=== PATIENT | male | born 1960 | race Hispanic/Latino ===

== ENCOUNTER 2024-06-13 07:37 | Emergency (ER) | payer SELFPAY ==
--- NOTE | 2024-06-13 08:09 | ERN ---
ED Note History of Present Illness Stated Complaint: FLU SYMPTOMS Chief Complaint: Flu Symptoms Time Seen by MD: 07:51 Dictation: The patient is a 63-year-old male patient with a medical history of type 2 diabetes mellitus presented to the emergency department with the primary complaint of severe headaches that began the previous day. The onset of symptoms coincided with his use of crack cocaine. He reports experiencing intense pain throughout his head, along with difficulty swallowing and episodes of sweating. Although he does not recall having a fever, he does report experiencing chills and generalized weakness. Additionally, he describes a sensation of pressure in the center of his chest but denies any occurrences of vomiting or diarrhea. The patient has no prior history of pulmonary or cardiac conditions and has not experienced similar symptoms in the past. He also reports no neurological deficits. Allergies: Coded Allergies: No Known Drug Allergies (Unverified Allergy, Unknown, 06/13/24) Home Meds Active Scripts Amoxicillin (Amoxicillin) 500 Mg Tablet, 1 TAB PO BID for 10 Days, #20 TAB 0 Refills Prov:FEROZ SHAFFER MD 06/13/24 Past Medical History Past Medical History: Diabetes-Type II Surgical History: None Review of System Dictation REVIEW OF SYSTEMS CONSTITUTIONAL: complaints of chills, weakness no fever or night sweats. No unintentional weight loss reported. NEUROLOGICAL: c/o headache, no amaurosis fugax, motor weakness, sensory def icit, vertigo/spinning sensation, gait abnormalities, or tremors. ENT:difficulty/painful swallowing, No hearing loss, otalgia, otorrhea, rhinitis, rhinorrhea, hoarseness, or sore throat. CARDIOVASCULAR: c/o chest pressure, Denies any exertional angina, dyspnea on exertion, orthopnea, paroxysmal nocturnal dyspnea, palpitations, life-threate moshe arrhythmias, claudication. PULMONARY: Denies any shortness of breath, cough, phlegm/sputum, hemoptysis, pleuritic chest pain. SLEEP: Denies morning headaches, daytime somnolence or napping. Denies difficulty falling asleep, staying asleep, waking from sleep. Denies knowledge of snoring. GASTROINTESTINAL: Denies any type of dysphagia to either liquids or solids. Denies nausea, vomiting, pyrosis, early satiety, abdominal pain, diarrhea, constipation, or changes in stool consistency or caliber. Denies coffee-ground emesis, hematemesis, hematochezia, or melanotic stools. GENITOURINARY: Denies frequency, urgency, nocturia, hematuria or incontinence (Storage/Irritative symptoms.) Low urinary stream, straining to void, urinary intermittency or hesitancy, splitting of the voiding stream, terminal dribbling. ENDOCRINOLOGIC: Denies polyuria, polydipsia, polyphagia or heat/cold intolerances. HEMATOLOGIC: Denies thrombophilia/previous clots, or coagulopathy/bleeding disorders. ONCOLOGIC: Denies personal history of malignancy. DERMATOLOGIC: Denies rashes or pruritus. PSYCHIATRIC: Denies any suicidal or homicidal ideation. Denies hallucinations. Initial Vital Sign VS Vital Signs Date Time Temp Pulse Resp B/P (MAP) Pulse Ox O2 Delivery O2 Flow Rate FiO2 06/13/24 08:02 97.5 56 20 136/56 99 Room Air* 0 21 Physical Exam Dictation PHYSICAL EXAM GENERAL APPEARANCE: The patient is awake, alert, and oriented, in no acute ca rdiopulmonary distress. NEUROLOGICAL: Cranial nerves II-XII grossly intact. Motor is 5/5 in bilateral upper and lower extremities proximal to distal. No sensory deficits. HEENT: Erythema over pharynx, Face is symmetric. Pupils are equal and reactive. Extraocular movements are intact. NECK: Supple. No JVD. No thyromegaly. No submental, submandibular, pre-/ postauricular, occipital or supraclavicular lymphadenopathy. CHEST: Normal chest expansion. No Telemetry. LUNGS: Absence of any rales, rhonchi or any wheezing. CARDIOVASCULAR: Regular. S1 and S2 normal. No appreciable rubs, murmurs or gallops. ABDOMEN: Soft, nontender, and nondistended. There is no rebound, voluntary guarding, or rigidity. : Deferred. No Izquierdo. EXTREMITIES: Non-edematous and not cyanotic. No clubbing. Good capillary refill. SKIN: No skin breakdown. Results (Laboratory/Radiology) Laboratory/Radiology Laboratory Tests Test 06/13/24 08:05 06/13/24 08:15 06/13/24 08:20 Influenza Type A Antigen Negative For Type A Influenza Type B Antigen Negative For Type B SARS-CoV-2 Antigen (Rapid) PRESUMPTIVE NEGATIVE Group A Streptococcus Rapid positive (NEGATIVE) *A Urine Opiates Screen NEGATIVE (NEGATIVE) Urine Barbiturates Screen NEGATIVE (NEGATIVE) Urine Phencyclidine Screen NEGATIVE (NEGATIVE) Urine Amphetamines Screen NEGATIVE (NEGATIVE) Urine Benzodiazepines Screen NEGATIVE (NEGATIVE) Urine Cocaine Screen POSITIVE (NEGATIVE) H Urine Marijuana (THC) Screen POSITIVE (NEGATIVE) H White Blood Count 9.9 K/uL (4.8-10.8) Red Blood Count 4.74 MIL/uL (4.50-6.20) Hemoglobin 15.0 g/dL (14.0-18.0) Hematocrit 44.0 % (42-54) Mean Corpuscular Volume 92.8 fL (79-99) Mean Corpuscular Hemoglobin 31.6 pg (27.0-33.0) Mean Corpuscular Hemoglobin Concent 34.1 g/dL (32.0-36.0) Red Cell Distribution Width 13.9 % (11.0-15.5) Platelet Count 230 K/uL (130-400) Mean Platelet Volume 9.8 fL (7.5-10.5) Immature Granulocyte % (Auto) 0.5 % (0-1) Neutrophils (%) (Auto) 76.0 % (40.0-77.0) Lymphocytes (%) (Auto) 15.1 % (21.0-51.0) L Monocytes (%) (Auto) 7.1 % (3.0-13.0) Eosinophils (%) (Auto) 0.9 % (0.0-8.0) Basophils (%) (Auto) 0.4 % (0.0-5.0) Neutrophils # (Auto) 7.5 K/uL (1.8-7.7) Lymphocytes # (Auto) 1.5 K/uL (1.0-4.8) Monocytes # (Auto) 0.7 K/uL (0.1-1.0) Eosinophils # (Auto) 0.09 K/uL (0.00-0.70) Basophils # (Auto) 0.04 K/uL (0.00-0.20) Absolute Immature Granulocyte (auto 0.05 K/uL (0-1) Nucleated Red Blood Cells 0.0 % (0.0-0.19) Sodium Level 137 mmol/L (136-145) Potassium Level 4.1 mmol/L (3.5-5.1) Chloride Level 101 mmol/L (101-111) Carbon Dioxide Level 30 mmol/L (21-32) Blood Urea Nitrogen 9 mg/dL (7-18) Creatinine 0.8 mg/dL (0.5-1.3) Glomerular Filtration Rate Calc 99 mL/min (>90) Random Glucose 142 mg/dL (70-105) H Total Calcium 8.8 mg/dL (8.5-10.1) Troponin I High Sensitivity 4 ng/L (4-75) EKG Comment: Rate 56, sinus rhythm, normal axis MO 154 QT 453 ED Course ED Course Orders Procedure Category Date Status Time 12 Lead Ekg Tracing- EKG 06/13/24 Complete Technical 08:03 Cbc With Differential LAB 06/13/24 Complete 08:03 Basic Metabolic Panel LAB 06/13/24 Complete 08:03 Troponin I High LAB 06/13/24 Complete Sensitivity 08:03 Covid19 (Sars Antigen LAB 06/13/24 Complete Rapid) 08:03 Influenza Type A & B, LAB 06/13/24 Complete Rapid 08:03 Rapid (Group A Strep) LAB 06/13/24 Complete 08:03 Drug Screen Urine LAB 06/13/24 Complete 08:03 Chest 1vw RAD 06/13/24 Taken 08:06 0.9% Nacl 500ml PHA 06/13/24 Complete Iv.Soln (Ns 500ml 09:00 Acetaminophen 325 Tab PHA 06/13/24 Complete (Tylenol 325mg Tab 09:00 Mag/Alum/Simeth 30ml PHA 06/13/24 Complete (Maalox Plus 30ml) 09:00 Pantoprazole 40mg Inj PHA 06/13/24 Complete (Protonix 40mg Inj 09:00 Current Medications Medications (Trade) Dose Ordered Sig/Fabio Route PRN Reason Start Time Stop Time Status Last Admin Dose Admin Acetaminophen (TYLenol 325MG TAB) 650 mg ONCE ONCE PO 06/13/24 09:00 06/13/24 09:26 DC Al Hydroxide/Mg Hydroxide (MAALox PLUS 30ML) 30 ml ONCE ONCE PO 06/13/24 09:00 06/13/24 09:26 DC Pantoprazole Sodium (PROTonix 40MG INJ) 40 mg ONCE ONCE IVP 06/13/24 09:00 06/13/24 09:26 DC Sodium Chloride 500 ml @ 0 mls/hr ONCE ONCE IV 06/13/24 09:00 06/13/24 09:26 DC Vital Signs Date Time Temp Pulse Resp B/P (MAP) Pulse Ox O2 Delivery O2 Flow Rate FiO2 06/13/24 08:02 97.5 56 20 136/56 99 Room Air* 0 21 08:10 The patient underwent examination in hallway B1. He is hemodynamically stable, exhibiting a pulse rate of 72, an SpO2 level of 96% on room air, and a blood pressure reading of 136/56. The patient is afebrile, with a recorded temperature of 97.5. According to the patient, symptoms began yesterday following the use of an unspecified amount of cocaine. We will proceed with ordering basic laboratory tests and conducting a cardiac evaluation to assess for any signs of ischemia or myocardial infarction. Once the investigations and laboratory results are available, we will determine whether the patient requires emergency intervention or inpatient care. Continuous monitoring of the patient will be maintained. 09:00: I proceeded to the lobby to conduct a further evaluation of the patient. He has reported experiencing headaches and discomfort during swallowing. The complete blood count and basic metabolic panel do not indicate any significant abnormalities. Urine drug screen was positive for cocaine and marijuana. Troponin results are pending. We will administer Tylenol, Maalox, pantoprazole, and a fluid bolus, and will reassess the patient's clinical condition at a later time. Continuous monitoring of the patient will be maintained. 09:30: The patient has a positive for group A Streptococcus. At this point, the patient does not require any emergency treatment or inpatient hospitalization. We will discharge him with amoxicillin 500 mg b.i.d. for 10 days. We did extensive counseling on polysubstance use disorder. The patient verbalizes understanding. The patient is stable for discharge Medical Decision Making MDM MDM Differential diagnosis: Streptococcal pharyngitis, cocaine and marijuana use disorder, polysubstance use, Gastritis Rationale: Tests considered and ordered secondary to shared decision making include: Previous outside records reviewed: Old ER visits. Risk of complication and/or morbidity or mortality of patient management: None Medications-Per medication reconciliation Need for hospitalization: Patient does not meet criteria for hospitalization. Need for emergency major/minor surgery: No There are no social concerns with this patient. Prescription drug management Prescriptions will include symptomatic care Patient's prior external medical records from other ER visits were reviewed by me as indicated. Prior testing and results from previous visits were reviewed. Prior tests were taken into account with medical decision making and resource utilization, independent historian/historians were used to obtain complete medical history. I independently interpreted the test that were performed, results were reviewed by me and considered findings on radiology if ordered. DX & DISP Disposition: Discharge Departure Impression: Primary Impression: Acute streptococcal pharyngitis Additional Impressions: Cocaine intoxication, Marijuana use, Polysubstance abuse, Gastritis Condition: Stable Scripts Amoxicillin (Amoxicillin) 500 Mg Tablet 1 TAB PO BID for 10 Days, #20 TAB 0 Refills Prov: FEROZ SHAFFER MD 06/13/24 Additional Instructions: Take antibiotics: Take Amoxicillin 500 MG PO BID for 10 days. Get rest: Get lots of rest to help your body fight infection. Drink fluids: Drink plenty of clear liquids, such as soups, broths, and water. Gargle with salt water: Gargle several times a day with warm salt water to help relieve throat pain. Take pain relievers: Take game-ywd-ytvrdek pain relievers, such as acetaminophen (Tylenol) or ibuprofen (Advil, Motrin). Cocaine is a stimulant that can cause increased energy, alertness, and euphoria and can lead to cardiovascular issues and addiction. Co-using cocaine and marijuana can lead to increased heart rate and blood pressure. Marijuana can impair attention, judgment, and coordination. Marijuana use can lead to depression, anxiety, and psychotic episodes. Marijuana use can worsen respiratory conditions. Visit the nearest emergency department or call 911 should the symptoms returns or gets worse. Referrals: SELF,REFERRAL (PCP) I have reviewed, & agreed with my scribe's, documentation. I have reviewed the case, and I agree with, Diagnosis and Plan I have examined patient, & reviewed all documents, & agreed W/ the Diagnosis FEROZ SHAFFER MD Jun 13, 2024 08:09
--- NOTE | 2024-06-13 08:33 | EKG ---
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
[2024-06-13 08:36] LABS: BASOPHILS # (AUTO) 0.04 K/uL (0.00-0.20); BASOPHILS % (AUTO) 0.4 % (0.0-5.0); EOSINOPHILS # (AUTO) 0.09 K/uL (0.00-0.70); EOSINOPHILS % (AUTO) 0.9 % (0.0-8.0); IMMATURE GRANULOCYTE ABSOLUTE 0.05 K/uL (0-1); LYMPHOCYTES # (AUTO) 1.5 K/uL (1.0-4.8); LYMPHOCYTES % (AUTO) 15.1 % (21.0-51.0); MEAN CORPUSCULAR HEMOGLOBIN 31.6 pg (27.0-33.0); MEAN CORPUSCULAR HGB CONC 34.1 g/dL (32.0-36.0); MEAN CORPUSCULAR VOLUME 92.8 fL (79-99); MONOCYTES # (AUTO) 0.7 K/uL (0.1-1.0); MONOCYTES % (AUTO) 7.1 % (3.0-13.0); NEUTROPHILS # (AUTO) 7.5 K/uL (1.8-7.7); PLATELET COUNT (AUTO) 230 K/uL (130-400); RED BLOOD CELL COUNT(AUTO) 4.74 MIL/uL (4.50-6.20); RED CELL DISTRIBUTION WIDTH 13.9 % (11.0-15.5); WHITE BLOOD COUNT (AUTO) 9.9 K/uL (4.8-10.8)
[2024-06-13 08:42] LABS: CREATININE 0.8 mg/dL (0.5-1.3); POTASSIUM 4.1 mmol/L (3.5-5.1)
[2024-06-13 09:10] LABS: COVID19 (SARS ANTIGEN RAPID) PRESUMPTIVE NEGATIVE (NEGATIVE); INFLUENZA TYPE A Negative For Type A (NEGATIVE); INFLUENZA TYPE B Negative For Type B (NEGATIVE)
[2024-06-13 09:12] LABS: AMPHET/METH SCREEN,URINE NEGATIVE (NEGATIVE); BARBITURATE SCREEN, URINE NEGATIVE (NEGATIVE); BENZODIAZEPINES SCREEN,URINE NEGATIVE (NEGATIVE); CANNABINOID SCREEN,URINE POSITIVE (NEGATIVE); COCAINE SCREEN,URINE POSITIVE (NEGATIVE); OPIATE SCREEN,URINE NEGATIVE (NEGATIVE); PHENCYCLIDINE SCREEN,URINE NEGATIVE (NEGATIVE)
--- NOTE | 2024-06-13 09:22 | NUR ---
STREP+ ERMD MADE AWARE
[2024-06-13 09:23] LABS: RAPID GROUP A STREP positive (NEGATIVE)
[2024-06-13] MEDS ORDERED: AMOX500T2 PO (09:40)
[2024-06-13] MEDS: PANTOPrazole 40 MG/VIAL IVP ONE (09:59)
[2024-06-13] MEDS: acetaMINOPHEN 325 MG TAB PO ONE (10:00)
[2024-06-13] MEDS: MAG/ALUM/SIMETH 30 ML UDCUP PO ONE (10:00)
[2024-06-13] MEDS: 0.9% NACL 500ML IV.SOLN 500 ML IV ONE (10:00)
[2024-06-13] MEDS: LIDOCAINE HCL 2% VISCOUS 15 ML UDCUP ONE (10:06)
[2024-06-13] MEDS: LIDOCAINE HCL 2% VISCOUS 15 ML UDCUP PO ONE (10:15)
[2024-06-13 10:19] VITALS: BP 109/68; PULSE 70; RESP 22; TEMP 97.6; O2SAT 98
--- NOTE | 2024-06-13 11:58 | HMCIMG ---
CHEST 1VW HISTORY: Chest pressure COMPARISON: None FINDINGS: A frontal projection of the chest was obtained. Prominent interstitial markings are seen with possible superimposed infiltrates. The heart is borderline enlarged. Degenerative changes are seen. No evidence of aortic calcification is seen. IMPRESSION: 1. Prominent interstitial markings are seen with possible superimposed infiltrates.
== END 2024-06-13 10:07 | disposition home or self-care (01) ==
LOC: EDH 07:37
DX: J02.0 Streptococcal pharyngitis (principal); F14.129 Cocaine abuse with intoxication, unspecified; F12.10 Cannabis abuse, uncomplicated; K29.70 Gastritis, unspecified, without bleeding; E11.9 Type 2 diabetes mellitus without complications; Z20.822 Contact with and (suspected) exposure to COVID-19
CPT/HCPCS: 99285; 96374; 71045; 87426; 84484; 80048; 80305; 85025; 87880; 87804 ×2; 36415; 93005; J2470